=== PATIENT | female | born 1995 | race Hispanic/Latino ===

== ENCOUNTER 2019-11-01 17:03 | Emergency (ER) | payer OTHER ==
[~2019-11-01] VITALS: Ht 157.5 cm; Wt 66.5 kg
[2019-11-01] MEDS ORDERED: [UNRECOGNIZED DRUG - REMARK] (17:08)
[2019-11-01] MEDS ORDERED: OXAZEPAM 15 MG CAP PO ONE (17:30)
[2019-11-01 18:47] VITALS: BP 137/94
== END 2019-11-01 18:52 | disposition home or self-care (01) ==
LOC: M ED 17:03
DX: F10.120 Alcohol abuse with intoxication, uncomplicated (principal)